=== PATIENT | male | born 1975 | race Hispanic/Latino ===

== ENCOUNTER 2019-01-27 13:35 | Emergency (ER) | payer OTHER ==
[2019-01-27] MEDS ORDERED: IBUPROFEN 600 MG TABLET ONE (14:07)
== END 2019-01-27 15:35 | disposition home or self-care (01) ==
LOC: EDH 13:35
DX: R51 Headache (principal); M54.2 Cervicalgia; Z87.891 Personal history of nicotine dependence; V59.09XA Driver of pick-up truck or van injured in collision with other motor vehicles in nontraffic accident, initial encounter; Y93.89 Activity, other specified; Y92.89 Other specified places as the place of occurrence of the external cause; Y99.8 Other external cause status
CPT/HCPCS: 70450